=== PATIENT | male | born 1970 | race Caucasian/White ===

== ENCOUNTER 2020-01-23 21:29 | Emergency (ER) | payer SELFPAY ==
[~2020-01-23] VITALS: Ht 180.3 cm; Wt 72.6 kg
--- NOTE | 2020-01-23 21:30 | NUR ---
Dr. Nichole at bedside for MSE
--- NOTE | 2020-01-23 21:31 | NUR ---
Patient ambulating with steady gait. A&O x4. at bedside. Patient c/o CP with SOB and abdominal pain for 3 days. pain does not radiate per patient. Breathing even and unlabored. O2 sat at 97% on RA. Denies any JAMES, dizziness, blurred vision. Speech is clear and able to make needs known follow commands. Denies any / GI distress. at bedside.
[2020-01-23 21:58] LABS: BASOPHILS % (AUTO) 0.1 % (0.0-2.0); EOSINOPHILS # (AUTO) 0.2 K/uL (0.0-0.7); EOSINOPHILS % (AUTO) 0.9 % (0.0-7.0); HEMATOCRIT 43.5 % (36.7-47.1); HEMOGLOBIN 14.2 g/dL (12.5-16.3); LYMPHOCYTES # (AUTO) 3.6 K/uL (20.0-40.0); LYMPHOCYTES % (AUTO) 19.5 % (20.5-51.5); MEAN CORPUSCULAR HEMOGLOBIN 27.3 uug (23.8-33.4); MEAN CORPUSCULAR HGB CONC 33 g/dL (32.5-36.3); MEAN CORPUSCULAR VOLUME 83.8 fL (73.0-96.2); MONOCYTES # (AUTO) 0.8 K/uL (2.0-10.0); NEUTROPHILS # (AUTO) 14.1 K/uL (1.8-8.9); NEUTROPHILS % (AUTO) 75.5 % (38.5-71.5); PLATELET COUNT (AUTO) 356 K/uL (152-348); RED BLOOD CELL COUNT(AUTO) 5.19 MIL/uL (4.06-5.63); WHITE BLOOD COUNT (AUTO) 18.7 K/uL (3.6-10.2)
[2020-01-23 22:06] LABS: CREATININE 1.2 mg/dL (0.6-1.3); POTASSIUM 4.3 mmol/L (3.5-5.1)
[2020-01-23 22:11] LABS: BILIRUBIN,TOTAL 0.3 mg/dL (0.2-1.0); TOTAL PROTEIN, SERUM 7.6 g/dL (6.4-8.2)
[2020-01-23 22:13] LABS: BILIRUBIN,DIRECT 0.1 mg/dL (0.0-0.2)
--- NOTE | 2020-01-23 22:22 | NUR ---
Called [address] [facility]
[2020-01-23] MEDS ORDERED: ASPIRIN 81 MG TAB.CHEW ONE (22:25)
[2020-01-23] MEDS ORDERED: NITROGLYCERIN IV 250 ML ONE (22:27)
[2020-01-23] MEDS ORDERED: ASPIRIN 81 MG TAB.CHEW PO ONE (22:30)
[2020-01-23] MEDS ORDERED: HEPARIN SODIUM,PORCINE/PF 100 UNIT/ML, 5ML SYR XX ONE (22:30)
--- NOTE | 2020-01-23 22:31 | NUR ---
Note undone in EDM - 01/24/20 at 0415 by QUAN Patient ambulating with steady gait. A&O x4. at bedside. Patient c/o CP with SOB and abdominal pain for 3 days. pain does not radiate per patient. Breathing even and unlabored. O2 sat at 97% on RA. Denies any JAMES, dizziness, blurred vision. Speech is clear and able to make needs known follow commands. Denies any / GI distress. at bedside.
[2020-01-23] MEDS ORDERED: HEPARIN SODIUM,PORCINE 5,000 UNITS/ML VIAL ONE (22:32)
--- NOTE | 2020-01-23 22:35 | NUR ---
Nitro drip to be started per Dr. Nichole verbal order.
[2020-01-23] MEDS ORDERED: NITROGLYCERIN 0.4MG/HR (=16 CM2) PATCH TD ONE (22:36)
[2020-01-23] MEDS ORDERED: NITROGLYCERIN OINT 1 GM PACKET TP ONE (22:37)
[2020-01-23 22:45] VITALS: BP 95/67
[2020-01-23] MEDS ORDERED: NITROGLYCERIN IV 250 ML IV PRN (22:45)
[2020-01-23] MEDS: NITROGLYCERIN OINT 1 GM PACKET TP ONE ×2 (22:45→22:49)
--- NOTE | 2020-01-23 22:45 | NUR ---
Patient taken by [facility] via gurney in stable condition. Patient able to ambulate to [facility]. Breathing even and unlabored denies any SOB, Dizziness, JAMES, Blurred vision. Patient states CP is 2/10 on the pain scale. non radiating. all belongings with patient
== END 2020-01-23 22:45 | disposition short-term general hospital (02) ==
LOC: ER 21:31
DX: I21.3 ST elevation (STEMI) myocardial infarction of unspecified site (principal); F17.200 Nicotine dependence, unspecified, uncomplicated; Z88.0 Allergy status to penicillin
CPT/HCPCS: 36415; 71045; 80048; 80076; 83690; 84484; 85025; 93005; 99291; J1644; J3490; 70030-TC; A4663